=== PATIENT | female | born 2000 | race Caucasian/White ===

== ENCOUNTER → 2020-06-01 09:24 | Outpatient (CLI) | payer OTHER | END | disposition home or self-care (01) | LOC: D.US 05-28 14:00 | PROVIDERS: ATTEND Student in an Organized Health Care Education/Training Program | DX: N63.10 Unspecified lump in the right breast, unspecified quadrant (principal) ==

== ENCOUNTER → 2020-07-22 14:54 | Outpatient (CLI) | payer OTHER ==
[~2020-07-22] VITALS: Ht 167.6 cm; Wt 58.1 kg
[2020-07-22 15:05] VITALS: BP 120/66
[2020-07-22 15:37] LABS: BASOPHILS 0.6 % (0-2); EOSINOPHILS 0.8 % (0-7); HEMOGLOBIN 12.3 g/dL (12-16); LYMPHOCYTES 20.6 % (15-50); MCH 29.9 pg (26.0-34.0); MCHC 34.2 g/dL (31.0-37.0); MCV 87.3 fL (80.0-100.0); MEAN PLATELET VOLUME 8.7 fL (7.4-10.4); MONOCYTES 5.8 % (2-11); NEUTROPHILS 72.2 % (40-80); PLATELET COUNT 254 10x3/uL (130-400); RBC 4.12 10x6/uL (4.00-5.40); RDW 14.7 % (11.5-14.5); WBC 10.7 10x3/uL (4.8-10.8)
[2020-07-22 15:42] LABS: CALC OSMOLALITY 275 mosm/kg (275-300); CALCIUM 8.7 mg/dL (8.5-10.1); CARBON DIOXIDE 25.1 mmol/L (21.0-32.0); CHLORIDE - SERUM 104 mmol/L (98-107); CREATININE - SERUM 0.5 mg/dL (0.6-1.3); GLUCOSE 80 mg/dL (74-106); POTASSIUM - SERUM 3.6 mmol/L (3.5-5.1); SODIUM 139 mmol/L (136-145); UREA NITROGEN 10 mg/dL (7-18); eGFR NON AFRICAN AMERICAN > 90 mL/min (90-120)
[2020-07-22 15:44] LABS: HCG SERUM POSITIVE (NEGATIVE)
[2020-07-22 16:09] LABS: ALBUMIN 2.9 g/dL (3.4-5.0); ALKALINE PHOSPHATASE 41 U/L (30-120); ALT (SGPT) 15 U/L (10-68); BILIRUBIN - TOTAL 0.31 mg/dL (0.2-1.3); HCG - QUANTITATIVE (MATERNAL) 20704 mIU/mL; PROTEIN - SERUM 6.7 g/dL (6.4-8.2)
[2020-07-22 17:37] LABS: BILIRUBIN NEGATIVE (NEGATIVE); KETONE NEGATIVE mg/dL (< 1+); NITRITE NEGATIVE (NEGATIVE); PH 5.5 (5.0-8.0); SQUAMOUS EPITHELIAL 1 HPF (0-4); UROBILINOGEN NORMAL mg/dL (< 2); WHITE CELLS - URINE <1 HPF (0-4)
[2020-07-22 17:50] LABS: APTT 29.2 SECONDS (22.8-39.4); INR 1.08 (0.85-1.17)
--- NOTE | 2020-07-22 19:06 | NUR ---
FHT OBTAINED VIA DOPPLER, 157-160 BPM
[2020-07-22 21:32] LABS: BASOPHILS 0.3 % (0-2); EOSINOPHILS 0.5 % (0-7); HEMATOCRIT 33.7 % (36.0-48.0); HEMOGLOBIN 11.7 g/dL (12-16); LYMPHOCYTES 21.1 % (15-50); MCH 30.3 pg (26.0-34.0); MCHC 34.7 g/dL (31.0-37.0); MCV 87.3 fL (80.0-100.0); MEAN PLATELET VOLUME 8.8 fL (7.4-10.4); MONOCYTES 5.3 % (2-11); NEUTROPHILS 72.8 % (40-80); PLATELET COUNT 219 10x3/uL (130-400); RBC 3.86 10x6/uL (4.00-5.40); RDW 14.3 % (11.5-14.5); WBC 10.2 10x3/uL (4.8-10.8)
[2020-07-22 21:44] LABS: INR 1.11 (0.85-1.17); PROTIME 13.3 SECONDS (11.6-15.0)
[2020-07-22 21:52] VITALS: Ht 167.6 cm; Wt 58.1 kg
== END | disposition home or self-care (01) ==
LOC: D.ER 14:54 → D.LDO 14:54 → D.ER 16:12 → EDSTATUS 16:40
PROVIDERS: Family Medicine; ATTEND Obstetrics & Gynecology
DX: O26.899 Other specified pregnancy related conditions, unspecified trimester (principal); Z3A.00 Weeks of gestation of pregnancy not specified